=== PATIENT | female | born 1950 ===

== ENCOUNTER 2024-05-04 10:30 | Inpatient (IN) | payer OTHER ==
[~2024-05-04] VITALS: Ht 160 cm; Wt 39.9 kg
[2024-05-04] MEDS ORDERED: FARXIGA5 MG (12:57)
[2024-05-04] MEDS ORDERED: CARVEDILOL (12:57)
[2024-05-04] MEDS ORDERED: LOSARTAN POTASS25 MG (12:57)
[2024-05-04] MEDS ORDERED: SPIRONOLACTONE25 MG (12:58)
[2024-05-04] MEDS ORDERED: SYNTHROID88 MCG (12:58)
[2024-05-04] MEDS ORDERED: ADULT LOW DOSE81 M1 (12:58)
[2024-05-04] MEDS ORDERED: ROSUVASTATIN CA10 MG (12:59)
[2024-05-04] MEDS ORDERED: BONIVA 150MG (12:59)
[2024-05-09] MEDS ORDERED: ESTRADIOL10 MCG (09:05)
[2024-05-09] MEDS ORDERED: CARVEDILOL3.125 M1 (09:05)
[2024-05-09] MEDS ORDERED: IBANDRONATE SO150 MG (09:06)
[2024-05-09] MEDS ORDERED: CEFTRIAXONE SODIUM 2,000 MG VIAL IV ONE (09:45)
[2024-05-09] MEDS ORDERED: METRONIDAZOLE/SODIUM CHLORIDE 500 MG/100 ML PIGGYBACK IV ONE (09:45)
[2024-05-09] MEDS ORDERED: ONDANSETRON HCL 2 MG/ML VIAL IV PRN (10:30)
[2024-05-09] MEDS ORDERED: MORPHINE SULFATE 4 MG/ML CARTRIDGE IV PRN (10:30)
[2024-05-09] MEDS ORDERED: RINGERS SOLUTION,LACTATED 1,000 ML IV SCH (10:30)
[2024-05-09] MEDS ORDERED: OxyCODONE HCL 5 MG TABLET (ROXICODONE) PO PRN (10:30)
[2024-05-09] MEDS ORDERED: MORPHINE SULFATE 4 MG/ML VIAL IV ONE ×2 (11:20→14:00)
[2024-05-09 12:22] LABS: HEMATOCRIT 29.5 % (36.0-45.00); HEMOGLOBIN 10.1 g/dL (12.0-15.00); MEAN CELL VOLUME 98.2 fL (80.00-100.00); MEAN CORPUSCULAR HEMOGLOBIN 33.6 pg (27.00-32.0); MEAN CORPUSCULAR HGB CONC 34.2 g/dl (32.0-36.0); PLATELET COUNT 237 K/uL (150-450); RED BLOOD COUNT 3.01 M/uL (4.00-6.00); RED CELL DISTRIBUTION WIDTH 14.7 % (11.5-14.5)
[2024-05-09] MEDS ORDERED: CARVEDILOL 3.125 MG TABLET PO SCH (17:00)
[2024-05-09] MEDS ORDERED: GABAPENTIN 300 MG CAPSULE PO SCH (17:00)
[2024-05-09] MEDS ORDERED: METOCLOPRAMIDE HCL 5 MG/ML VIAL IV SCH (17:00)
[2024-05-09 18:31] VITALS: BP 111/57; O2SAT 100
[2024-05-09] MEDS ORDERED: ACETAMINOPHEN 500 MG GEL..CAP PO SCH (20:00)
[2024-05-09] MEDS ORDERED: FAMOTIDINE/PF 20 MG/2 ML VIAL IV PUSH SCH (21:00)
[2024-05-10 01:40] VITALS: BP 78/47; O2SAT 98
[2024-05-10 02:17] VITALS: BP 93/61
[2024-05-10] MEDS ORDERED: LEVOTHYROXINE SODIUM 88 MCG TABLET PO SCH (06:00)
[2024-05-10 07:13] LABS: HEMATOCRIT 28.5 % (36.0-45.00); HEMOGLOBIN 9.7 g/dL (12.0-15.00); MEAN CELL VOLUME 98.4 fL (80.00-100.00); MEAN CORPUSCULAR HEMOGLOBIN 33.5 pg (27.00-32.0); MEAN CORPUSCULAR HGB CONC 34.1 g/dl (32.0-36.0); PLATELET COUNT 206 K/uL (150-450); RED BLOOD COUNT 2.89 M/uL (4.00-6.00); RED CELL DISTRIBUTION WIDTH 14.3 % (11.5-14.5)
[2024-05-10 07:35] LABS: ALBUMIN 2.4 gm/dL (3.4-5.0); CALCIUM 8.2 mg/dL (8.5-10.1); CREATININE SERUM 0.98 mg/dL (0.55-1.02); GFR 55.48; MAGNESIUM 1.8 mg/dL (1.8-2.4); PHOSPHOROUS 3.5 mg/dL (2.5-4.9); POTASSIUM 3.8 mEq/L (3.5-5.1)
[2024-05-10 08:00] VITALS: BP 126/55; O2SAT 100
[2024-05-10] MEDS ORDERED: LOSARTAN POTASSIUM 25 MG TABLET PO SCH (09:00)
[2024-05-10] MEDS ORDERED: SPIRONOLACTONE 25 MG TABLET PO SCH (09:00)
[2024-05-10] MEDS ORDERED: LACTOBACILLUS ACIDOPHILUS 1 CAP CAP PO SCH (09:00)
[2024-05-10] MEDS ORDERED: Cyanocobalamin/Mecobalamin 1 TAB.SL SL SCH (12:00)
[2024-05-10] MEDS ORDERED: SOD FERRIC GLUC COMPLX/SUCROSE 62.5 MG in 0.9 % SODIUM CHLORIDE 50 ML IV SCH (12:00)
[2024-05-10 16:00] VITALS: BP 100/60; BP 102/69; O2SAT 95
[2024-05-10] MEDS ORDERED: ENOXAPARIN SODIUM 40 MG/0.4 ML SYRINGE SUBCUTANEO SCH (17:00)
[2024-05-11 01:34] VITALS: BP 96/54; O2SAT 96
[2024-05-11] MEDS ORDERED: INSULIN LISPRO 1,000 UNIT/10 ML UNITS SUBCUTANEO PRN (05:30)
[2024-05-11] MEDS ORDERED: DEXTROSE 50 % IN WATER 0.5 G/ML DISP.SYRIN IV PRN (05:30)
[2024-05-11] MEDS ORDERED: TRAM1TAB98 PO (07:36)
[2024-05-11] MEDS ORDERED: NEURONTIN300 MG PO (07:36)
[2024-05-11] MEDS ORDERED: INTESTINEX680 M1 PO (07:37)
[2024-05-11 08:48] VITALS: BP 104/78; O2SAT 97
[2024-05-11] MEDS ORDERED: ENOXAPARIN SODIUM 40 MG/0.4 ML SYRINGE SUBCUTANEO SCH (09:00)
== END 2024-05-11 16:12 | disposition home or self-care (01) | DRG 330 ==
LOC: SURH 05-09 06:18 → O/R 05-09 06:18 → SURH 05-09 10:30
PROVIDERS: ADMIT Surgery; ATTEND Surgery
PROC: 0DNV4ZZ Release Mesentery, Percutaneous Endoscopic Approach (ICD-10-PCS; 2024-05-09)
PROC: 0D1L4Z4 Bypass Transverse Colon to Cutaneous, Percutaneous Endoscopic Approach (ICD-10-PCS; principal; 2024-05-09 12:15)
PROC: 4A12X4Z Monitoring of Cardiac Electrical Activity, External Approach (ICD-10-PCS; 2024-05-10)
DX: K56.50 Intestinal adhesions [bands], unspecified as to partial versus complete obstruction (principal); Z68.1 Body mass index [BMI] 19.9 or less, adult; C53.8 Malignant neoplasm of overlapping sites of cervix uteri; D49.0 Neoplasm of unspecified behavior of digestive system; K56.49 Other impaction of intestine; K59.09 Other constipation; R63.4 Abnormal weight loss; E11.9 Type 2 diabetes mellitus without complications; I10 Essential (primary) hypertension; E03.9 Hypothyroidism, unspecified; E78.5 Hyperlipidemia, unspecified; Z43.3 Encounter for attention to colostomy; Z79.84 Long term (current) use of oral hypoglycemic drugs